=== PATIENT | male | born 1935 | race Caucasian/White ===

== ENCOUNTER 2021-11-20 09:26 | Emergency (ER) | payer OTHER, SELFPAY ==
[~2021-11-20] VITALS: Ht 170.2 cm; Wt 90.7 kg
[2021-11-20 09:28] VITALS: BP_SYST 145
[2021-11-20] MEDS ORDERED: ASPIRIN 81 MG TAB.CHEW PO ONE (10:15)
[2021-11-20 10:34] LABS: BASOPHILS % (AUTO) 0.2 % (0.0-2.0); EOSINOPHILS # (AUTO) 0.1 K/uL (0.0-0.4); EOSINOPHILS % (AUTO) 1.1 % (0.0-4.0); HEMATOCRIT 32.5 % (36-54); HEMOGLOBIN 10.4 g/dL (14.0-18.0); LYMPHOCYTES # (AUTO) 0.9 K/uL (1.0-5.5); LYMPHOCYTES % (AUTO) 7.9 % (20.5-51.5); MEAN CORPUSCULAR HEMOGLOBIN 26 pg (27-31); MEAN CORPUSCULAR HGB CONC 32 % (32-36); MEAN CORPUSCULAR VOLUME 82 fL (79.0-98.0); MONOCYTES # (AUTO) 0.7 K/uL (0.0-1.0); MONOCYTES % (AUTO) 6.2 % (1.7-9.3); NEUTROPHILS # (AUTO) 9.5 K/uL (1.8-7.7); NEUTROPHILS % (AUTO) 84.6 % (40.0-70.0); PLATELET COUNT (AUTO) 300 K/uL (130-430); RED BLOOD CELL COUNT(AUTO) 3.96 MIL/uL (4.2-6.2); RED CELL DISTRIBUTION WIDTH 16.7 % (9.0-15.0); WHITE BLOOD COUNT (AUTO) 11.2 K/uL (4.8-10.8)
[2021-11-20 10:51] LABS: ALANINE AMINOTRANSFERASE 33 U/L (12-78); ALBUMIN 3.2 g/dL (3.4-4.8); ASPARTATE AMINOTRANSFERASE 28 U/L (10-37); CREATININE 1.15 mg/dL (0.55-1.30); TOTAL BILIRUBIN 0.3 mg/dL (0.0-1.0); UREA NITROGEN, BLOOD 16 mg/dL (8-21)
[2021-11-20 11:01] LABS: ANION GAP 14 (5-15); CALCIUM 8.7 mg/dL (8.4-11.0); CHLORIDE 99 mmol/L (98-107); GLUCOSE 235 mg/dL (70-99); POTASSIUM 4.2 mmol/L (3.5-5.1); SODIUM SERUM 135 mmol/L (136-145)
[2021-11-20] MEDS ORDERED: LevALBUTEROL HCL 1.25 MG/0.5 ML *CONC.* VIAL.NEB (XOPENEX CONC.) INH ONE (11:30)
[2021-11-20] MEDS ORDERED: cefTRIAXone 1 GM IVPB PREMIX 50 ML IV ONE (12:00)
[2021-11-20] MEDS ORDERED: AZITHROMYCIN 500 MG in D5W 250 ML IV ONE (12:00)
[2021-11-20] MEDS ORDERED: AZITHROMYCIN 500 MG/VIAL (ZITHROMAX) IV ONE (12:53)
[2021-11-20 14:44] VITALS: BP_SYST 133
== END 2021-11-20 14:44 | disposition home or self-care (01) ==
LOC: SED 09:26
DX: J18.9 Pneumonia, unspecified organism (principal); R09.02 Hypoxemia; D64.9 Anemia, unspecified; E11.9 Type 2 diabetes mellitus without complications; Z20.822 Contact with and (suspected) exposure to COVID-19; Z79.899 Other long term (current) drug therapy
CPT/HCPCS: 36415; 71045; 80053; 83605; 83880; 84484; 85025; 87040; 87426; 93005; 94640; 96365; 96367; 99285; J0456; J0696; J7060; J7612

== ENCOUNTER 2022-03-10 13:33 | Inpatient (IN) | payer OTHER ==
[~2022-03-10] VITALS: Ht 170.2 cm; Wt 95.3 kg
[2022-03-10 13:50] VITALS: BP_SYST 103
--- NOTE | 2022-03-10 13:55 | NUR ---
ERMD AT BEDSIDE AT 1355
--- NOTE | 2022-03-10 14:55 | NUR ---
[facility] in [facility] - 03/10/22 at 1455 by [id number] FAMILY AT BEDSIDE, PT AMBULAS
--- NOTE | 2022-03-10 14:56 | NUR ---
FAMILY AT BEDSIDE, PT AMBULATED TO RESTROOM WITH STEADY GAIT
[2022-03-10 15:04] LABS: MEAN CORPUSCULAR HEMOGLOBIN 23 pg (27-31); MEAN CORPUSCULAR HGB CONC 31 % (32-36); MEAN CORPUSCULAR VOLUME 75 fL (79.0-98.0); PLATELET COUNT (AUTO) 435 K/uL (130-430); RED BLOOD CELL COUNT(AUTO) 2.93 MIL/uL (4.2-6.2); RED CELL DISTRIBUTION WIDTH 16.8 % (9.0-15.0); WHITE BLOOD COUNT (AUTO) 15.2 K/uL (4.8-10.8)
[2022-03-10 15:11] LABS: ANION GAP 5 (5-15); CALCIUM 7.2 mg/dL (8.4-11.0); CHLORIDE 103 mmol/L (98-107); CREATININE 1.61 mg/dL (0.55-1.30); GLUCOSE 326 mg/dL (70-99); POTASSIUM 4.5 mmol/L (3.5-5.1); SODIUM SERUM 135 mmol/L (136-145); UREA NITROGEN, BLOOD 24 mg/dL (8-21)
[2022-03-10 15:15] LABS: HEMOGLOBIN 6.8 g/dL (14.0-18.0)
[2022-03-10 15:17] LABS: ALANINE AMINOTRANSFERASE 25 U/L (12-78); ALBUMIN 2.2 g/dL (3.4-4.8); ASPARTATE AMINOTRANSFERASE 15 U/L (10-37); TOTAL BILIRUBIN 0.3 mg/dL (0.0-1.0)
[2022-03-10 15:22] LABS: BAND % (MANUAL) 1 % (0-6); BASOPHILS % (MANUAL) 0 % (0-2); EOSINOPHILS % (MANUAL) 0 % (0-7); LYMPHOCYTES % (MANUAL) 15 % (20-46); MONOCYTES % (MANUAL) 7 % (0-11)
--- NOTE | 2022-03-10 16:03 | NUR ---
NEETA NEG NIT NEG URO 1 PRO NEG PH 6.0 BLOOD TRACE SG 1.025 KET SMALL DEREK NEG GLU 2 OR MORE
[2022-03-10] MEDS ORDERED: PANTOPRAZOLE SODIUM 80 MG in NS 100 ML IV ONE (17:15)
[2022-03-10] MEDS ORDERED: PANTOPRAZOLE SODIUM 40 MG in NS 50 ML IV ONE (17:15)
[2022-03-10] MEDS ORDERED: PANTOPRAZOLE SODIUM 40 MG/VIAL (PROTONIX) ONE ×2 (17:22→18:09)
--- NOTE | 2022-03-10 18:20 | NUR ---
SISTER MARIAH CALLED WITH CONCERN OF HER FATHER
--- NOTE | 2022-03-10 20:05 | NUR ---
PATIENT GIVEN WATER. RESTING IN BED WITH AT BEDSIDE, NO SIGNS OF DISTRESS OR CHANGE IN PATIENT CONDITION.
[2022-03-10] MEDS ORDERED: PANTOPRAZOLE SODIUM 40 MG in NS 50 ML IV SCH (20:15)
[2022-03-10] MEDS: NACL 0.9% 1,000 ML IV SCH (20:15)
--- NOTE | 2022-03-10 20:39 | NUR ---
Admit bed requested Patient will be admitted to care of . Admitted to TELE unit. Diagnosis GI BLEED Inpatient (Yes or No) YES Observation (Yes or No) NO Orientation concerns or request close to nursing station (Yes or No) NO Covid Status PENDING On vent or bipap NO Isolation requirements NO Needs a sitter NO From Home (Yes or if No enter name of facility) YES Requires Dialysis (Yes or No) NO Med Rec Completed (Yes of No) PENDING
--- NOTE | 2022-03-10 21:01 | NUR ---
Patient will be admitted to care of TELE. Admitted to unit. Will go to room . Belongings list completed. Complete and up to date summary report printed. SBAR report to be given at bedside with opportunity for questions.
[2022-03-10 21:41] VITALS: BP_SYST 127
--- NOTE | 2022-03-10 21:45 | NUR ---
pt.received via er-dept.pt.presented w anemia status;hgb;6.8.pt.ordered to receive the administration prbc's x1 unit. pt.presents w diabetic/htn hx.v/s assessed upon arrival values wnl.pt.presented w walker to facilitate ambulation.call light/telephone presented w and placed w/in access of the pt.
[2022-03-10 22:30] VITALS: BP_SYST 127
[2022-03-10] MEDS: INSULIN REGULAR, HUMAN 100 UNITS/ML, 10 ML VIAL (humuLIN R) SUBCUT PRN (23:20)
[2022-03-11] VITALS: BP_SYST 129
--- NOTE | 2022-03-11 00:25 | NUR ---
blood transfusion initiated.prbcs' reviewed per protocol;dolly presented as 2nd verification.
--- NOTE | 2022-03-11 00:40 | NUR ---
remained w the pt.the initial 15mins of the prbc's administration per protocol.no adverse reactions manifested.iv access intact;patent.
--- NOTE | 2022-03-11 01:00 | NUR ---
blood transfusion in progress.iv access intact;patent.call light/telephone w/in access of the pt.
--- NOTE | 2022-03-11 02:00 | NUR ---
blood transfusion in progress.iv access intact;patent.call light/telephone w/in access of the pt.
--- NOTE | 2022-03-11 03:00 | NUR ---
blood transfusion in progress.iv access intact;patent.call light/telephone w/in access of the pt.
--- NOTE | 2022-03-11 03:45 | NUR ---
blood trAnsFUISioN ComPLeTED.NO ADverse ReaCTIOnS MANIFESTED.call light/telephone w/in access of the pt.
[2022-03-11] MEDS: NACL 0.9% 1,000 ML IV SCH ×2 (04:55→21:15)
--- NOTE | 2022-03-11 06:00 | NUR ---
pt.assessed.pt.presents quiescent affect;calm,somnolent.per flacc pain mgx pt.absent facial grimaces/body posturing. pt.capable to reposition self.call light/telephone w/in access of the pt.
[2022-03-11 06:07] LABS: BASOPHILS # (AUTO) 0.1 K/uL (0.0-0.2); BASOPHILS % (AUTO) 0.5 % (0.0-2.0); EOSINOPHILS # (AUTO) 0.2 K/uL (0.0-0.4); EOSINOPHILS % (AUTO) 1.6 % (0.0-4.0); HEMATOCRIT 25.9 % (36-54); HEMOGLOBIN 8.2 g/dL (14.0-18.0); LYMPHOCYTES # (AUTO) 3.1 K/uL (1.0-5.5); LYMPHOCYTES % (AUTO) 25.9 % (20.5-51.5); MEAN CORPUSCULAR HEMOGLOBIN 24 pg (27-31); MEAN CORPUSCULAR HGB CONC 32 % (32-36); MEAN CORPUSCULAR VOLUME 77 fL (79.0-98.0); MONOCYTES # (AUTO) 0.9 K/uL (0.0-1.0); MONOCYTES % (AUTO) 7.7 % (1.7-9.3); NEUTROPHILS # (AUTO) 7.7 K/uL (1.8-7.7); NEUTROPHILS % (AUTO) 64.3 % (40.0-70.0); PLATELET COUNT (AUTO) 401 K/uL (130-430); RED BLOOD CELL COUNT(AUTO) 3.37 MIL/uL (4.2-6.2); RED CELL DISTRIBUTION WIDTH 16.8 % (9.0-15.0)
[2022-03-11 06:22] LABS: ANION GAP 1 (5-15); CALCIUM 7.6 mg/dL (8.4-11.0); CHLORIDE 104 mmol/L (98-107); GLUCOSE 166 mg/dL (70-99); POTASSIUM 4.3 mmol/L (3.5-5.1); SODIUM SERUM 135 mmol/L (136-145); UREA NITROGEN, BLOOD 20 mg/dL (8-21)
[2022-03-11] MEDS: INSULIN REGULAR, HUMAN 100 UNITS/ML, 10 ML VIAL (humuLIN R) SUBCUT PRN (06:27)
--- NOTE | 2022-03-11 07:15 | NUR ---
OPENING NOTE RECEIVED SBAR FROM NIGHT RN. PATIENT IN BED, RESPIRATIONS EVEN, NON LABORED, BED IN LOW AND LOCKED POSITION, CALL LIGHT WITHIN REACH, BED ALARM ON
[2022-03-11 08:00] VITALS: BP_SYST 148
--- NOTE | 2022-03-11 09:15 | NUR ---
NURSE NOTE ASSISTED PATIENT TO THE BATHROOM, VOIDED, RETURNED BED, BED IN LOW AND LOCKED POSITION CALL LIGHT WITHIN REACH, BED ALARM ON. IVF'S RUNNING ORDERED
--- NOTE | 2022-03-11 09:30 | NUR ---
MD PAGED DR MALDONADO, PATIENT COMPLAINING OF SORES TO THE ROOF OF THE MOUTH. ASSESSED REDNESS NOTED, NO SORES SEEN. WILL AWAIT MD RETURN CALL FOR NEW ORDER
--- NOTE | 2022-03-11 11:15 | NUR ---
CONSULTATION PAGED REASON FOR CONSULTATION:GI BLEED WAS CONSULT CALLED?Y -PERSON WHO WAS NOTIFIED:ANUPAMA (YEVGENIY FISHER FUND DIRECTOR) CONSULTING PHYSICIAN:CHARLES DUMONT DIRECTOR MORTGAGE SPECIALTY:GI DIRECTOR MORTGAGE PHONE NUMBER:[phone] REQUESTING PHYSICIAN:PHILLIP SALVADOR
[2022-03-11 12:00] VITALS: BP_SYST 135
--- NOTE | 2022-03-11 12:00 | NUR ---
PAGED DR MALDONADO SECOND TIME
--- NOTE | 2022-03-11 12:37 | NUR ---
NURSE NOTE ASSISTED PATIENT TO THE BATHROOM, VOIDED, RETURNED BED, BED IN LOW AND LOCKED POSITION CALL LIGHT WITHIN REACH, BED ALARM ON. IVF'S RUNNING ORDERED
--- NOTE | 2022-03-11 13:15 | NUR ---
MD DR BEEBE BEDSIDE EXAMING PATIENT
--- NOTE | 2022-03-11 15:18 | NUR ---
IV PLACEMENT: # 20 gauge angiocath placed to right forearm. Use of asceptic technique. Opsite placed over site. Blood return noted. Flushed with 10 cc of normal saline. No evidence of infiltration noted. Patient tolerated well.
[2022-03-11 16:00] VITALS: BP_SYST 131
[2022-03-11] MEDS ORDERED: BISACODYL 5 MG TABLET.DR (DULCOLAX) PO ONE (17:00)
[2022-03-11] MEDS ORDERED: GOLYTELY / COLYTE SOLUTION 4 LITERS PO ONE (18:00)
--- NOTE | 2022-03-11 19:45 | NUR ---
closing note provided sbar to night RN. Patient in bed, respirations even, non labored, bed in low and locked position, call light within reach, bed alarm on. ivf's running as ordered. Endorsed golytely completion to night RN
[2022-03-11 20:00] VITALS: BP_SYST 103
--- NOTE | 2022-03-11 20:00 | NUR ---
Patient a/o x4, vs stable, denies any pain, no acute distress noted, NSR to ST on tele with activity. Up to date with plan of care. Golytely at bedside, initiated by Shayy acevedo RN. Educated and informed patient that golytely prep needs to be completed by midnight. Pt states: "I can not finish it that fast. I feel like am going to throw up. I will do my best but i have to drink it slowly." Will frequently check on patient to complete prep and will monitor stool consistency. Pt states he's had diarrhea x2 brown in color.
--- NOTE | 2022-03-11 22:00 | NUR ---
Pt is still working on golytely. Diarrhea of light brown stool noted x1. Pt is still working on drinking the prep.
--- NOTE | 2022-03-12 | NUR ---
Patient is almost intermediate of the prep. No significant changes, vs stable, denies any pain. NSR on tele.
[2022-03-12] MEDS: INSULIN REGULAR, HUMAN 100 UNITS/ML, 10 ML VIAL (humuLIN R) SUBCUT PRN ×2 (00:07→19:01)
[2022-03-12 00:26] VITALS: BP_SYST 120
--- NOTE | 2022-03-12 02:00 | NUR ---
Pt refused to drink the rest of golyely. Pt drank 2000 ml of prep.
--- NOTE | 2022-03-12 05:30 | NUR ---
Water enema done as ordered. Pt tolerated well. Pt have several large yellow watery stool after water enema was done. Will inform Dr. Nguyen that only half of [facility] prep pt was able to tolerate.
--- NOTE | 2022-03-12 06:00 | NUR ---
Paged Dr. Gracia to inform patient was only able to drink half of golytely. Enema done at 0500. Pt now has yellow like urine watery stools. Awaiting for call back.
[2022-03-12 07:32] LABS: INR 1.1 (0.80-1.20)
[2022-03-12 08:00] VITALS: BP_SYST 124
[2022-03-12] MEDS ORDERED: fentaNYL CITRATE/PF 100 MCG/2 ML AMP ONE (09:53)
[2022-03-12] MEDS ORDERED: MIDAZOLAM HCL 5 MG/5 ML VIAL ONE (09:53)
[2022-03-12] MEDS ORDERED: DEXTROSE 50%-WATER 50 ML DISP.SYRIN IVP PRN (11:00)
[2022-03-12] MEDS ORDERED: GLUCOSE (DEXTROSE) ORAL GEL -Adults PO PRN (11:00)
[2022-03-12] MEDS ORDERED: D5W 1,000 ML IV PRN (11:00)
[2022-03-12 12:45] VITALS: BP_SYST 121
[2022-03-12 16:30] VITALS: BP_SYST 129
--- NOTE | 2022-03-12 18:45 | NUR ---
Mr Cutler has been assessed as indicted. He has been noted to be both pleasant and cooperative. His and daughter have been at the bedside most of the day. He has successfully completed his colonoscopy test. This exam was well tolerated. He anticipates that he will be DC to home tomorrow. He is resting quietly at this time
[2022-03-12] MEDS: NACL 0.9% 1,000 ML IV SCH ×2 (18:58→22:15)
--- NOTE | 2022-03-12 19:15 | NUR ---
Handoff has been given to Marquita
--- NOTE | 2022-03-13 00:03 | NUR ---
AccuCheck Done and obtained result of 136 mg/dL . Pt resting and comfortable, does not request any needs.
[2022-03-13 00:05] VITALS: BP_SYST 130
--- NOTE | 2022-03-13 02:15 | NUR ---
Nursing Rounds Pt resting with eyes closed. IV fluids running, bed at lowest position and bed alarm. CMZ.
[2022-03-13] MEDS ORDERED: PANTOPRAZOLE SODIUM 40 MG in NS 50 ML IV SCH (06:06)
[2022-03-13 06:23] LABS: BASOPHILS # (AUTO) 0.1 K/uL (0.0-0.2); BASOPHILS % (AUTO) 1.1 % (0.0-2.0); EOSINOPHILS # (AUTO) 0.2 K/uL (0.0-0.4); HEMATOCRIT 24.5 % (36-54); HEMOGLOBIN 7.9 g/dL (14.0-18.0); LYMPHOCYTES % (AUTO) 22.3 % (20.5-51.5); MEAN CORPUSCULAR HEMOGLOBIN 24 pg (27-31); MEAN CORPUSCULAR HGB CONC 32 % (32-36); MEAN CORPUSCULAR VOLUME 76 fL (79.0-98.0); MONOCYTES # (AUTO) 0.8 K/uL (0.0-1.0); MONOCYTES % (AUTO) 8.5 % (1.7-9.3); NEUTROPHILS % (AUTO) 66.1 % (40.0-70.0); PLATELET COUNT (AUTO) 334 K/uL (130-430); RED BLOOD CELL COUNT(AUTO) 3.23 MIL/uL (4.2-6.2); RED CELL DISTRIBUTION WIDTH 16.7 % (9.0-15.0); WHITE BLOOD COUNT (AUTO) 9.1 K/uL (4.8-10.8)
[2022-03-13] MEDS: NACL 0.9% 1,000 ML IV SCH (06:45)
[2022-03-13 13:03] VITALS: BP_SYST 115
[2022-03-13] MEDS ORDERED: PANT20TA2 PO (13:13)
[2022-03-13 13:19] VITALS: BP_SYST 128
--- NOTE | 2022-03-13 13:35 | NUR ---
Mr Cutler has been assessed as indicated. He has been DC to home. IV access has been removed. DC instructions were reviewed with the patient hi daughter as well as his . They were at the bedside at the time of DC. At the time of DC Mr Cutler had no s/s of distress or discomfort and was compliant with the plan to DC home. he was escorted to the front door via WC by staff. He was driven away in a private vehicle driven by his daughter dax.
== END 2022-03-13 13:35 | disposition home or self-care (01) | DRG 393 ==
LOC: SED 13:33 → STU 20:02
PROVIDERS: ADMIT Family Medicine; ATTEND Family Medicine
PROC: 30233N1 Transfusion of Nonautologous Red Blood Cells into Peripheral Vein, Percutaneous Approach (ICD-10-PCS; 2022-03-11)
PROC: 0DB68ZX Excision of Stomach, Via Natural or Artificial Opening Endoscopic, Diagnostic (ICD-10-PCS; principal; 2022-03-12 13:00)
PROC: 0DBH8ZX Excision of Cecum, Via Natural or Artificial Opening Endoscopic, Diagnostic (ICD-10-PCS; 2022-03-12 13:00)
PROC: 0DBE8ZZ Excision of Large Intestine, Via Natural or Artificial Opening Endoscopic (ICD-10-PCS; 2022-03-12 13:00)
DX: K63.3 Ulcer of intestine (principal); K57.31 Diverticulosis of large intestine without perforation or abscess with bleeding; K29.71 Gastritis, unspecified, with bleeding; D62 Acute posthemorrhagic anemia; Z20.822 Contact with and (suspected) exposure to COVID-19; E11.65 Type 2 diabetes mellitus with hyperglycemia; D50.9 Iron deficiency anemia, unspecified; K63.5 Polyp of colon; K64.8 Other hemorrhoids
CPT/HCPCS: 36415; 36430; 43239; 45380; 45384; 71045; 80048; 80053; 82962; 83036; 85007; 85025; 85027; 85610-TC; 86870; 86886; 86900; 86901; 86920; 87081; 88305; 88312; 88313; 93005; 96374; 99285; C9113; G0378; J1815; J2250; J3010; P9021

== ENCOUNTER 2022-03-28 09:30 | Emergency (ER) | payer OTHER ==
[~2022-03-28] VITALS: Ht 170.2 cm; Wt 90.7 kg
[~2022-03-28 09:30] MED LIST: PANT20TA2 PO
[2022-03-28 10:54] VITALS: BP_SYST 128
[2022-03-28 11:42] LABS: BASOPHILS % (AUTO) 0.2 % (0.0-2.0); EOSINOPHILS # (AUTO) 0.1 K/uL (0.0-0.4); EOSINOPHILS % (AUTO) 0.9 % (0.0-4.0); HEMATOCRIT 25.2 % (36-54); LYMPHOCYTES # (AUTO) 1.8 K/uL (1.0-5.5); LYMPHOCYTES % (AUTO) 10.6 % (20.5-51.5); MEAN CORPUSCULAR HEMOGLOBIN 24 pg (27-31); MEAN CORPUSCULAR HGB CONC 32 % (32-36); MEAN CORPUSCULAR VOLUME 76 fL (79.0-98.0); MONOCYTES # (AUTO) 1.1 K/uL (0.0-1.0); MONOCYTES % (AUTO) 6.5 % (1.7-9.3); NEUTROPHILS # (AUTO) 13.8 K/uL (1.8-7.7); NEUTROPHILS % (AUTO) 81.8 % (40.0-70.0); PLATELET COUNT (AUTO) 462 K/uL (130-430); RED BLOOD CELL COUNT(AUTO) 3.34 MIL/uL (4.2-6.2); RED CELL DISTRIBUTION WIDTH 17.9 % (9.0-15.0); WHITE BLOOD COUNT (AUTO) 16.9 K/uL (4.8-10.8)
[2022-03-28 11:46] LABS: ANION GAP 8 (5-15); CALCIUM 8.3 mg/dL (8.4-11.0); CHLORIDE 102 mmol/L (98-107); CREATININE 1.77 mg/dL (0.55-1.30); GLUCOSE 257 mg/dL (70-99); POTASSIUM 4.2 mmol/L (3.5-5.1); SODIUM SERUM 136 mmol/L (136-145); UREA NITROGEN, BLOOD 26 mg/dL (8-21)
[2022-03-28 12:06] LABS: ALANINE AMINOTRANSFERASE 28 U/L (12-78); ALBUMIN 2.6 g/dL (3.4-4.8); ASPARTATE AMINOTRANSFERASE 13 U/L (10-37); TOTAL BILIRUBIN 0.4 mg/dL (0.0-1.0)
--- NOTE | 2022-03-28 14:25 | NUR ---
Patient left without being seen.
== END 2022-03-28 14:25 | disposition left against medical advice (07) ==
LOC: SED 09:30
DX: D64.9 Anemia, unspecified (principal); Z53.21 Procedure and treatment not carried out due to patient leaving prior to being seen by health care provider
CPT/HCPCS: 36415; 80053; 85025

== ENCOUNTER 2022-06-04 07:08 | Emergency (ER) | payer OTHER ==
[~2022-06-04] VITALS: Ht 170.2 cm; Wt 90.7 kg
[2022-06-04 07:15] VITALS: BP_SYST 136
[2022-06-04] MEDS ORDERED: DEXTROSE 50% JECT 50 ML DISP.SYRIN IVP ONE (09:30)
[2022-06-04 11:00] VITALS: BP_SYST 136
[2022-06-05] MEDS ORDERED: LOSA100T3 PO (07:28)
[2022-06-05] MEDS ORDERED: HUM100IN SQ (07:28)
[2022-06-05] MEDS ORDERED: FURO-149 PO (07:28)
[2022-06-05] MEDS ORDERED: CYM30 PO (07:28)
[2022-06-05] MEDS ORDERED: NOR10 PO (07:28)
[2022-06-05] MEDS ORDERED: DULA0.75 SQ (07:28)
== END 2022-06-04 12:00 | disposition left against medical advice (07) ==
LOC: SED 07:08
DX: E16.2 Hypoglycemia, unspecified (principal); R41.82 Altered mental status, unspecified; Z79.899 Other long term (current) drug therapy
CPT/HCPCS: 96374; 99283

== ENCOUNTER 2022-06-04 23:11 | Inpatient (IN) | payer OTHER ==
[~2022-06-04] VITALS: Ht 170.2 cm; Wt 90.7 kg
[2022-06-04 23:27] VITALS: BP_SYST 131
[2022-06-05] VITALS (14 sets, daily range): BP systolic 111–143
[2022-06-05] MEDS ORDERED: MORPHINE 4 MG INJ. 4 MG/ML VIAL IM ONE (00:30)
[2022-06-05] MEDS ORDERED: DEXTROSE 50% JECT 50 ML DISP.SYRIN IVP ONE (03:00)
[2022-06-05] MEDS ORDERED: D10W 250 ML IV SCH (05:15)
[2022-06-05] MEDS ORDERED: MORPHINE 2 MG/ML INJ. SYRINGE IVP PRN (05:30)
[2022-06-05 05:47] LABS: BASOPHILS # (AUTO) 0.1 K/uL (0.0-0.2); BASOPHILS % (AUTO) 0.5 % (0.0-2.0); EOSINOPHILS # (AUTO) 0.3 K/uL (0.0-0.4); EOSINOPHILS % (AUTO) 2.7 % (0.0-4.0); HEMATOCRIT 27.1 % (36-54); LYMPHOCYTES # (AUTO) 2.2 K/uL (1.0-5.5); LYMPHOCYTES % (AUTO) 18.3 % (20.5-51.5); MEAN CORPUSCULAR VOLUME 83 fL (79.0-98.0); MONOCYTES % (AUTO) 8.4 % (1.7-9.3); NEUTROPHILS # (AUTO) 8.6 K/uL (1.8-7.7); NEUTROPHILS % (AUTO) 70.1 % (40.0-70.0); PLATELET COUNT (AUTO) 314 K/uL (130-430); RED BLOOD CELL COUNT(AUTO) 3.26 MIL/uL (4.2-6.2); RED CELL DISTRIBUTION WIDTH 18.8 % (9.0-15.0); WHITE BLOOD COUNT (AUTO) 12.2 K/uL (4.8-10.8)
[2022-06-05 06:25] LABS: ANION GAP 4 (5-15); CALCIUM 8.5 mg/dL (8.4-11.0); CHLORIDE 100 mmol/L (98-107); CREATININE 1.27 mg/dL (0.55-1.30); GLUCOSE 74 mg/dL (70-99); POTASSIUM 3.8 mmol/L (3.5-5.1); UREA NITROGEN, BLOOD 24 mg/dL (8-21)
[2022-06-05 06:33] LABS: ALANINE AMINOTRANSFERASE 40 U/L (12-78); ALBUMIN 2.8 g/dL (3.4-4.8); ASPARTATE AMINOTRANSFERASE 32 U/L (10-37); TOTAL BILIRUBIN 0.2 mg/dL (0.0-1.0)
[2022-06-05] MEDS: D10W 1,000 ML IV SCH ×2 (06:36→08:11)
[2022-06-05] MEDS ORDERED: DULA0.75 SQ (07:28)
[2022-06-05] MEDS ORDERED: LOSA100T3 PO (07:28)
[2022-06-05] MEDS ORDERED: CYM30 PO (07:28)
[2022-06-05] MEDS ORDERED: HUM100IN SQ (07:28)
[2022-06-05] MEDS ORDERED: NOR10 PO (07:28)
[2022-06-05] MEDS ORDERED: FURO-149 PO (07:28)
[2022-06-05] MEDS ORDERED: MAGNESIUM SULFATE 50 ML IV PRN (08:00)
[2022-06-05] MEDS ORDERED: ONDANSETRON HCL 4 MG/2 ML VIAL IVP PRN (08:00)
[2022-06-05] MEDS ORDERED: MUPIROCIN 2% TOPICAL OINTMENT 22 GM NS PRN (08:00)
[2022-06-05] MEDS ORDERED: ZOLPIDEM TARTRATE 5 MG TABLET PO PRN (08:00)
[2022-06-05] MEDS ORDERED: LORazepam 2 MG/ML VIAL IVP PRN (08:00)
[2022-06-05] MEDS ORDERED: NALOXONE HCL 0.4 MG/ML AMP (NARCAN) IVP PRN ×2 (08:00)
[2022-06-05] MEDS ORDERED: POTASSIUM CHLORIDE 20 MEQ TAB.PRT.SR PO PRN (08:00)
[2022-06-05] MEDS ORDERED: DOCUSATE SODIUM 100 MG CAPSULE PO PRN (08:00)
[2022-06-05] MEDS ORDERED: ACETAMINOPHEN 325 MG TABLET PO PRN (08:00)
[2022-06-05] MEDS ORDERED: PIPERACILLIN/TAZOBACTAM 3.375 GM/VIAL (ZOSYN) IV ONE (08:50)
[2022-06-05] MEDS: PIPERACILLIN/TAZO 3.375/DEX-IS 50 ML IV SCH ×4 (08:57→23:18)
[2022-06-05] MEDS: DULoxetine HCL 30 MG CAPSULE.DR (CYMBALTA) PO SCH (08:59)
[2022-06-05] MEDS: FUROSEMIDE 40 MG TABLET PO SCH (09:00)
[2022-06-05] MEDS: amLODIPine BESYLATE 10 MG TABLET PO SCH (09:00)
[2022-06-05] MEDS: MORPHINE 2 MG/ML INJ. SYRINGE IVP PRN ×2 (12:59→16:20)
[2022-06-05] MEDS: LOSARTAN POTASSIUM 50 MG TABLET (COZAAR) PO SCH (20:11)
[2022-06-05] MEDS: INSULIN LISPRO SLIDING SCALE 100 UNITS/ML, 3 ML VIAL (humaLOG) SUBCUT PRN (20:14)
[2022-06-05 21:20] LABS: BILIRUBIN,URINE NEGATIVE (NEGATIVE); BLOOD, URINE NEGATIVE (NEGATIVE); CLARITY/URINE CLEAR (CLEAR); COLOR,URINE YELLOW (YELLOW); GLUCOSE,URINE NEGATIVE (NEGATIVE); KETONES,URINE NEGATIVE (NEGATIVE); LEUKOCYTE ESTERASE ,URINE NEGATIVE (NEGATIVE); NITRITE, URINE NEGATIVE (NEGATIVE); PROTEIN URINE NEGATIVE (NEGATIVE); UROBILINOGEN,URINE 0.2 (0.2-1.0)
[2022-06-06] VITALS (19 sets, daily range): BP systolic 103–127
[2022-06-06] MEDS: MORPHINE 2 MG/ML INJ. SYRINGE IVP PRN ×4 (02:00→23:35)
[2022-06-06] MEDS: PIPERACILLIN/TAZO 3.375/DEX-IS 50 ML IV SCH ×3 (05:22→18:31)
[2022-06-06] MEDS: INSULIN LISPRO SLIDING SCALE 100 UNITS/ML, 3 ML VIAL (humaLOG) SUBCUT PRN ×4 (06:36→20:43)
[2022-06-06 07:00] LABS: ANION GAP 6 (5-15); CALCIUM 8.3 mg/dL (8.4-11.0); CHLORIDE 98 mmol/L (98-107); CREATININE 1.23 mg/dL (0.55-1.30); GLUCOSE 236 mg/dL (70-99); UREA NITROGEN, BLOOD 16 mg/dL (8-21)
[2022-06-06 07:24] LABS: BASOPHILS # (AUTO) 0.1 K/uL (0.0-0.2); BASOPHILS % (AUTO) 0.6 % (0.0-2.0); EOSINOPHILS # (AUTO) 0.3 K/uL (0.0-0.4); EOSINOPHILS % (AUTO) 3.2 % (0.0-4.0); HEMATOCRIT 25.5 % (36-54); LYMPHOCYTES # (AUTO) 1.5 K/uL (1.0-5.5); LYMPHOCYTES % (AUTO) 17.4 % (20.5-51.5); MEAN CORPUSCULAR VOLUME 83 fL (79.0-98.0); MONOCYTES # (AUTO) 0.6 K/uL (0.0-1.0); MONOCYTES % (AUTO) 7.1 % (1.7-9.3); NEUTROPHILS # (AUTO) 6.3 K/uL (1.8-7.7); NEUTROPHILS % (AUTO) 71.7 % (40.0-70.0); PLATELET COUNT (AUTO) 279 K/uL (130-430); RED BLOOD CELL COUNT(AUTO) 3.05 MIL/uL (4.2-6.2); RED CELL DISTRIBUTION WIDTH 18.9 % (9.0-15.0); WHITE BLOOD COUNT (AUTO) 8.8 K/uL (4.8-10.8)
[2022-06-06] MEDS: FUROSEMIDE 40 MG TABLET PO SCH (09:58)
[2022-06-06] MEDS: DULoxetine HCL 30 MG CAPSULE.DR (CYMBALTA) PO SCH (09:58)
[2022-06-06] MEDS: PANTOPRAZOLE SODIUM 40 MG TAB PO SCH (09:59)
[2022-06-06] MEDS: amLODIPine BESYLATE 10 MG TABLET PO SCH (09:59)
[2022-06-06] MEDS: LOSARTAN POTASSIUM 50 MG TABLET (COZAAR) PO SCH (20:44)
[2022-06-07] VITALS: BP_SYST 112
[2022-06-07] MEDS ORDERED: PIPERACILLIN/TAZOBACTAM 3.375 GM/VIAL (ZOSYN) IV ONE ×2 (00:38→05:41)
[2022-06-07] MEDS: PIPERACILLIN/TAZO 3.375/DEX-IS 50 ML IV SCH ×2 (01:08→05:49)
[2022-06-07] MEDS: MORPHINE 2 MG/ML INJ. SYRINGE IVP PRN ×2 (05:03→09:50)
[2022-06-07] MEDS: INSULIN LISPRO SLIDING SCALE 100 UNITS/ML, 3 ML VIAL (humaLOG) SUBCUT PRN (06:17)
[2022-06-07 07:46] LABS: ANION GAP 7 (5-15); CALCIUM 8.2 mg/dL (8.4-11.0); CHLORIDE 100 mmol/L (98-107); CREATININE 1.22 mg/dL (0.55-1.30); GLUCOSE 190 mg/dL (70-99); POTASSIUM 3.5 mmol/L (3.5-5.1); UREA NITROGEN, BLOOD 10 mg/dL (8-21)
[2022-06-07 07:51] LABS: BASOPHILS % (AUTO) 0.5 % (0.0-2.0); EOSINOPHILS # (AUTO) 0.2 K/uL (0.0-0.4); EOSINOPHILS % (AUTO) 2.1 % (0.0-4.0); HEMATOCRIT 25.2 % (36-54); LYMPHOCYTES # (AUTO) 1.2 K/uL (1.0-5.5); LYMPHOCYTES % (AUTO) 14.4 % (20.5-51.5); MEAN CORPUSCULAR VOLUME 84 fL (79.0-98.0); MONOCYTES # (AUTO) 0.6 K/uL (0.0-1.0); MONOCYTES % (AUTO) 7.2 % (1.7-9.3); NEUTROPHILS # (AUTO) 6.5 K/uL (1.8-7.7); NEUTROPHILS % (AUTO) 75.8 % (40.0-70.0); PLATELET COUNT (AUTO) 258 K/uL (130-430); RED CELL DISTRIBUTION WIDTH 18.8 % (9.0-15.0); WHITE BLOOD COUNT (AUTO) 8.6 K/uL (4.8-10.8)
[2022-06-07 08:00] VITALS: BP_SYST 131
[2022-06-07] MEDS ORDERED: HYDR-3917 PO (08:54)
[2022-06-07] MEDS ORDERED: IBUP-1969 PO (08:54)
[2022-06-07] MEDS: PANTOPRAZOLE SODIUM 40 MG TAB PO SCH (09:47)
[2022-06-07] MEDS: FUROSEMIDE 40 MG TABLET PO SCH (09:48)
[2022-06-07] MEDS: amLODIPine BESYLATE 10 MG TABLET PO SCH (09:49)
[2022-06-07] MEDS: DULoxetine HCL 30 MG CAPSULE.DR (CYMBALTA) PO SCH (09:49)
[2022-06-07 11:13] VITALS: BP_SYST 131
[2022-06-07 11:32] VITALS: BP_SYST 146
== END 2022-06-07 12:00 | disposition home health service (06) | DRG 637 ==
LOC: SED 23:11 → SIC 06-05 05:28 → STU 06-05 10:20 → SMU 06-06 10:45 → STU 06-06 17:05 → SMU 06-06 19:13 → STU 06-06 19:16
PROVIDERS: ADMIT Family Medicine; ATTEND Family Medicine
DX: E11.649 Type 2 diabetes mellitus with hypoglycemia without coma (principal); G93.41 Metabolic encephalopathy; E44.0 Moderate protein-calorie malnutrition; N17.0 Acute kidney failure with tubular necrosis; E86.0 Dehydration; D72.829 Elevated white blood cell count, unspecified; Z20.822 Contact with and (suspected) exposure to COVID-19; I10 Essential (primary) hypertension; D64.9 Anemia, unspecified; E66.9 Obesity, unspecified; Z68.31 Body mass index [BMI] 31.0-31.9, adult
CPT/HCPCS: 36415; 36600; 70450-TC; 71045; 72100-TC; 72125-TC; 72131; 72170-TC; 72192-TC; 73502; 76376; 80048; 80053; 81003; 82803-TC; 82962; 83735; 83880; 84484; 85025; 93005; 93306; 94010; 96361; 96372; 96374; 97116-GP; 97163-GP; 97530-GP; 99285; G0378; J2270; J2543